=== PATIENT | female | born 1990 | race Caucasian/White ===

== ENCOUNTER 2016-08-03 08:37 | Emergency (ER) | payer OTHER ==
[~2016-08-03] VITALS: Ht 149.9 cm; Wt 49.0 kg
--- NOTE | 2016-08-03 09:02 | ED AMS/SEIZURE/WEAK/DIZZY ---
History of Present Illness General Chief Complaint: Dizziness Stated Complaint: dizziness Source: patient Exam Limitations: no limitations Vital Signs & Intake/Output Vital Signs & Intake/Output Vital Signs Date Time Temp Pulse Resp B/P Pulse O2 O2 Flow FiO2 Ox Delivery Rate 08/03 1024 98.6 76 18 124/65 98 Room Air 08/03 0843 97.8 105 20 110/75 99 Room Air Allergies Coded Allergies: NO KNOWN ALLERGIES (06/19/11) Reconcile Medications Alprazolam 0.25 MG TABLET 1 TAB PO DAILY NEEDED PRN ANXIETY (Reported) Ondansetron HCl 4 MG TABLET 1 TAB PO Q6P PRN NAUSEA/VOMITING (Reported) Triage Note: PT TO ED C/O DIZZINESS SINCE THIS AM. STATES SHE HAS HAD THE STOMACH BUG THE LAST FEW DAYS. C/O HEADACHE. Triage Nurses Notes Reviewed? yes Onset: Abrupt Duration: hour(s): Timing: recent history Injury Environment: home No Modifying Factors: none : No Patient currently breastfeeds: No HPI: 25-year-old female comes into emergency room with complaints of lightheaded dizziness family she was given a pass out this morning. Patient reports that she was on her way to work when the symptoms started to occur. She's been sick for the past few days with nausea vomiting and diarrhea. She reports that she has a mild headache at this time. Patient got concerned and then decided to drive here to the hospital. Denies any fever. (DYAN ROJAS) Past History Travel History Traveled to [place] past 21 day No Medical History Any Pertinent Medical History? none Surgical History Surgical History: none Psychosocial History What is your primary language Swiss Tobacco Use: Current Daily Use Daily Tobacco Use Amount/Type: => 5 Cigarettes daily ETOH Use: denies use Illicit Drug Use: denies illicit drug use Family History Hx Contributory? No (DYAN ROJAS) Review of Systems Review of Systems Constitutional: Reports: no symptoms. EENTM: Reports: no symptoms. Respiratory: Reports: no symptoms. Cardiovascular: Reports: see HPI. GI: Reports: no symptoms. Genitourinary: Reports: no symptoms. Musculoskeletal: Reports: no symptoms. Skin: Reports: no symptoms. Neurological/Psychological: Reports: no symptoms. Hematologic/Endocrine: Reports: no symptoms. Immunologic/Allergic: Reports: no symptoms. All Other Systems: Reviewed and Negative (BEN ROJAS Physical Exam Physical Exam General Appearance: well developed/nourished, no apparent distress, alert Head: atraumatic, normal appearance Eyes: Bilateral: normal appearance. Ears, Nose, Throat: normal ENT inspection, hearing grossly normal Neck: normal inspection Respiratory: normal breath sounds, no respiratory distress Cardiovascular: regular rate/rhythm, tachycardia Gastrointestinal: soft, non-tender Back: normal inspection Extremities: normal range of motion Neurologic/Psych: awake, alert, oriented x 3, normal gait, normal mood/affect Skin: intact, normal color Core Measures ACS in differential dx? No CVA/TIA Diagnosis: No Severe Sepsis Present: No Septic Shock Present: No (DYAN ROJAS) Progress Differential Diagnosis: arrythmia, anemia, benign positional vertigo, dehydration, electrolyte imbalance, hypoglycemia, labrynthitis, postural hypotension, UTI/pyelo Plan of Care: Orders Procedure Date/time Status URINE 08/04 855 Complete URINALYSIS 08/04 855 Complete LIPASE 08/04 855 Complete COMPREHENSIVE METABOLIC PANEL 08/04 855 Complete CBC WITHOUT DIFFERENTIAL 08/04 855 Complete Laboratory Tests 08/03/16 0922: Urine Color YEL, Urine Clarity HAZY H, Urine pH 7.0, Ur Specific [place] 1.010, Urine Protein NEG, Urine Ketones NEG, Urine Nitrite NEG, Urine Bilirubin NEG, Urine Urobilinogen 0.2, Ur Leukocyte Esterase TRACE H, Ur Microscopic SEDIMENT EXAMINED, Urine RBC RARE, Urine WBC 1-3 H, Ur Epithelial Cells MOD H, Urine Bacteria FEW H, Urine Hemoglobin NEG, Urine Glucose NEG, Urine Test NEGATIVE 08/03/16 0916: Anion Gap 12, Estimated GFR > 60, BUN/Creatinine Ratio 20.0, Glucose 109 H, Calcium 10.2, Total Bilirubin 0.9, AST 23, ALT 32, Alkaline Phosphatase 48, Total Protein 7.4, Albumin 4.6, Globulin 2.8, Albumin/Globulin Ratio 1.6, Lipase 91, CBC w Diff NO MAN DIFF REQ, RBC 5.42 H, MCV 84.6, MCH 29.1, RDW 12.7, MPV 8.9, Gran % 59.9, Lymphocytes % 31.9, Monocytes % 6.1, Eosinophils % 1.7, Basophils % 0.4, Absolute Granulocytes 2.8, Absolute Lymphocytes 1.5, Absolute Monocytes 0.3, Absolute Eosinophils 0.1, Absolute Basophils 0, PUBS MCHC 34.4 Initial ED EKG: none Comments: 08/03/2016 11:04:15 AM Patient feels significantly better and her symptoms have resolved. Symptoms most consistent with some slight dehydration from viral illness. Patient will follow up with her primary as needed. Rest. Drink fluids. Return if any other concerns. (DYAN ROJAS) Departure Departure Disposition: HOME OR SELF CARE Condition: Stable Clinical Impression Primary Impression: Gastroenteritis Secondary Impressions: Dehydration Referrals: NAEEM SIERRA,FABI Menjivar (PCP/Family) Additional Instructions: Continue taken Zofran. Follow-up with your primary care doctor. Return if any other concerns worsening symptoms. Please go over all results of today's visit with your primary care doctor. Contact your primary care doctor to let them know you were here in the emergency room. There may be nonspecific findings which may not be related to your visit today here in the emergency room but may require further evaluation and chronic monitoring by your primary care doctor. If you had a laceration today the chance of foreign body always remains. You should follow-up with your primary care doctor for recheck in 3-5 days for a wound check. If you had an x-ray done there is a chance that a fracture could have been missed on initial read and you should follow-up with your primary care doctor for repeat x-rays if symptoms persist. If your blood pressure was elevated here in the emergency room please have rechecked by her primary care doctor within the next 48 hours by your primary care doctor. If you were prescribed a narcotic here in the emergency room or any type of controlled substances you're not allowed to drive while taking this medication or operate any type of heavy machinery. Narcotics can make you feel lightheaded dizziness nausea and can cause constipation. You may need to picker feeder a stool softener. Thank you for choosing [facility] emergency room. Please return to the emergency room immediately if you have any other concerns worsening of symptoms. Departure Forms: Customer Survey General Discharge Information (DYAN ROJAS) PA/[employer] Co-Sign Statement Statement: ED Attending supervision documentation- [] I saw and evaluated the patient. I have also reviewed all the pertinent lab results and diagnostic results. I agree with the findings and the plan of care as documented in the PA's/[employer]'s documentation. x I have reviewed the ED Record and agree with the PA's/[employer]'s documentation. [] Additions or exceptions (if any) to the PAs/[employer]'s note and plan are summarized below: [] (NELLIE SIERRA,CRUZ)
[2016-08-03] MEDS ORDERED: ALPRAZOLAM0.25 M1 PO (09:06)
[2016-08-03] MEDS ORDERED: ONDANSETRON HCL4 MG PO (09:06)
[2016-08-03 09:24] LABS: ABSOLUTE BASOPHIL COUNT 0 /CUMM (0.0-0.2); ABSOLUTE EOSINOPHIL COUNT 0.1 /CUMM (0.0-0.7); ABSOLUTE GRANULOCYTE CT 2.8 /CUMM (1.4-6.5); ABSOLUTE LYMPH COUNT 1.5 /CUMM (1.2-3.4); ABSOLUTE MONOCYTE COUNT 0.3 /CUMM (0.10-0.60); BASOPHIL % 0.4 % (0.0-2.0); EOSINOPHIL % 1.7 % (0-5); GRANULOCYTE % 59.9 % (42.2-75.2); HEMATOCRIT 45.9 % (37-47); MEAN CORPUSCULAR HGB 29.1 PG (27.0-31.0); MEAN CORPUSCULAR HGB CONC 34.4 G/DL (33.0-37.0); MEAN CORPUSCULAR VOLUME 84.6 FL (81.0-99.0); MEAN PLATELET VOLUME 8.9 FL (7.4-10.4); PLATELET COUNT 192 /CUMM (130-400); RBC DISTRIBUTION WIDTH 12.7 % (11.5-14.5); RED BLOOD CELL CT 5.42 /CUMM (4.20-5.40); WHITE BLOOD CELL COUNT 4.7 /CUMM (4.8-10.8)
[2016-08-03 10:24] VITALS: BP 124/65
== END 2016-08-03 10:25 ==
LOC: ERH 08:37
PROVIDERS: Physician Assistant Medical
DX: K52.9 Noninfective gastroenteritis and colitis, unspecified (principal); E86.0 Dehydration
CPT/HCPCS: 81001; 81025; 96374; J2405